=== PATIENT | male | born 1990 | race African-American/Black ===

== ENCOUNTER 2019-06-09 21:04 | Emergency (ER) | payer MEDICAID ==
[~2019-06-09] VITALS: Ht 193 cm; Wt 78.0 kg
[2019-06-09] MEDS ORDERED: ONDANSETRON HCL 4MG/2ML INJ IV STA (22:25)
[2019-06-09] MEDS ORDERED: MORPHINE SULFATE 4 MG/ML CPJ (NOT FOR IM USE) IV STA (22:25)
[2019-06-09] MEDS ORDERED: SODIUM CHLORIDE 0.9% 1,000 ML IV ONE (22:25)
[2019-06-09] MEDS ORDERED: VANCOMYCIN 1 G PREMIX 200 ML IV SCH (22:30)
[2019-06-09] MEDS ORDERED: PIPERACILLIN/TAZ 3.375G PREMIX 50 ML IV ONE (22:30)
[2019-06-09 23:18] LABS: CHLORIDE 97 mEq/L (98-107)
[2019-06-09 23:22] LABS: PROTHROMBIN TIME 10.5 sec (9.6-11.0)
[2019-06-09 23:33] LABS: BASOPHILS % 0.2 % (0.0-2.0); EOSINOPHILS % 0.4 % (0.0-5.0); HEMOGLOBIN. 16.6 g/dL (14.0-18.0); LYMPHOCYTES % 13.8 % (20.0-50.0); MEAN CORPUSCULAR HEMOGLOBIN 29.9 pg (28.0-32.0); MEAN CORPUSCULAR VOLUME 90.1 fL (80.0-94.0); MONOCYTES % 12.3 % (2.0-8.0); NEUTROPHILS % 73.3 % (40.0-76.0); RED BLOOD CELL COUNT 5.54 mill/uL (4.7-6.1); RED CELL DISTRIBUTION WIDTH 14.2 % (11.6-14.6)
[2019-06-10 00:01] LABS: MEAN PLATELET VOLUME 9.9 fl (7.4-10.4)
[2019-06-10 00:02] LABS: PLATELET 169 x1000/uL (130-400)
[2019-06-10 02:09] LABS: CLARITY URINE CLEAR (CLEAR); COLOR URINE YELLOW (YELLOW); KETONES URINE NEGATIVE (NEGATIVE); LEUKOCYTE ESTERASE URINE NEGATIVE (NEGATIVE); NITRITE URINE NEGATIVE (NEGATIVE); OCCULT BLOOD URINE NEGATIVE (NEGATIVE); PH URINE 5.5 (4.5-8.0); PROTEIN URINE NEGATIVE (NEGATIVE); SPECIFIC GRAVITY URINE 1.007 (1.005-1.030)
[2019-06-10] MEDS ORDERED: MORPHINE SULFATE 4 MG/ML CPJ (NOT FOR IM USE) IV ONE ×2 (02:30→14:00)
[2019-06-10] MEDS ORDERED: IOHEXOL-300 100 ML BOTTLE ONE (02:41)
[2019-06-10] MEDS ORDERED: PIPERACILLIN/TAZ 3.375G PREMIX 50 ML IV ONE ×3 (06:45→15:30)
[2019-06-10] MEDS ORDERED: BACITRACIN ZINC OINT UDPKT TOP ONE (09:00)
[2019-06-10] MEDS ORDERED: LIDOCAINE 1%/EPI 1:100,000 10 ML VIAL IJ ONE (09:00)
[2019-06-10] MEDS: LIDOCAINE HCL/EPINEPHRINE 1%-EPI 1:100,000 20 ML VIAL INFIL SCH ×2 (09:11→10:44)
[2019-06-10] MEDS ORDERED: PIPERACILLIN/TAZ 3.375G PREMIX 50 ML IV NR (22:45)
[2019-06-11] MEDS ORDERED: IBUPROFEN 600MG TABLET PO ONE (00:15)
[2019-06-11 00:24] VITALS: BP 120/68
== END 2019-06-11 00:24 | disposition left against medical advice (07) ==
LOC: ER 21:04
DX: L02.01 Cutaneous abscess of face (principal); F12.10 Cannabis abuse, uncomplicated; F17.210 Nicotine dependence, cigarettes, uncomplicated; Z71.6 Tobacco abuse counseling
CPT/HCPCS: 36415; 70491; 71045; 80053; 81003; 83605; 85025; 85610; 87040; 87070; 87205; 96365; 96366; 96368; 96375; 96376; 99285; 99406; J2270; J2405; J2543; J3370; J3490; J7030; Q9967